=== PATIENT | male | born 1960 | race Caucasian/White ===

== ENCOUNTER 2018-06-26 00:38 | Outpatient (CLI) | payer MEDICAID, SELFPAY ==
--- NOTE | 2018-06-26 11:20 | DI.RAD_ITS ---
SYMPTOMS/DIAGNOSIS: BACK PAIN, DORSALGIA, M54.9 THORACIC SPINE: There is no evidence of compression fractures. There is a slight dextroscoliosis. The exam was not performed weight bearing. No vertebral body anomalies are seen. There are mild degenerative disc changes greatest in the mid thoracic region. The heart size appears normal. The aorta is mildly tortuous. IMPRESSION: Mild degenerative changes.
== END 2018-06-26 00:58 ==
PROVIDERS: PCP Nurse Practitioner; Visit Provider Nurse Practitioner
DX: M54.6 Pain in thoracic spine (principal); M47.814 Spondylosis without myelopathy or radiculopathy, thoracic region
CPT/HCPCS: 72072

== ENCOUNTER 2020-05-11 02:38 | Outpatient (CLI) | payer MEDICAID, SELFPAY ==
[2020-05-12 22:17] LABS: Patient Race White; SARS-CoV-2 RNA Undetected (Undetected); SARS-CoV-2 Specimen Source Nasal
== END 2020-05-11 02:58 ==
PROVIDERS: PCP Nurse Practitioner; Visit Provider Student in an Organized Health Care Education/Training Program
DX: Z11.59 Encounter for screening for other viral diseases (principal)
CPT/HCPCS: U0003

== ENCOUNTER 2021-08-04 01:50 | Outpatient (CLI) | payer MEDICAID, SELFPAY ==
[2021-08-04 07:45] LABS: HCT 40.1 % (40.0-50.0); HGB 13.1 g/dL (13.5-17.5); MCHC 32.7 % (32.0-36.0); MCV 94.8 fL (80-95); MPV 9.1 fL (8.0-11.0); Platelet Count 253 10^3/uL (130-400); RBC 4.23 10^6/uL (4.36-5.78); RDW 12.4 % (11.8-14.1); WBC 5.84 10^3/uL (4.4-10.8)
[2021-08-04 08:09] LABS: Hemoglobin A1C 5.6 % (<5.7)
[2021-08-04 09:06] LABS: ALT 32 U/L (16-63); AST 18 U/L (15-37); Albumin 3.6 g/dL (3.4-5.0); Alkaline Phosphatase 47 U/L (46-116); Anion Gap 9.5 mmol/L (3-11); BUN 20 mg/dL (7-18); Bilirubin, Total 0.5 mg/dL (0.2-1.0); CO2 27.5 mmol/L (21.0-32.0); CREATININE 1.2 mg/dL (0.70-1.30); Calcium 8.5 mg/dL (8.5-10.1); Calculated LDL 199 mg/dL (<100); Chloride 104 mmol/L (98-107); Cholesterol 270 mg/dL (<200); Glucose 93 mg/dL (74-106); HDL Cholesterol 52 mg/dL (40-60); Potassium 4.4 mmol/L (3.5-5.1); Sodium 141 mmol/L (136-145); TSH (W/Ref FT4) 5.32 uIU/mL (0.36-3.74); Total Protein 6.8 g/dL (6.4-8.2); Triglyceride 96 mg/dL (<150)
[2021-08-04 09:22] LABS: FREE T4 0.71 ng/dL (0.76-1.46)
== END 2021-08-04 01:51 | disposition home or self-care (01) ==
LOC: LBO 01:50
PROVIDERS: PCP Nurse Practitioner; Visit Provider Nurse Practitioner
DX: E03.9 Hypothyroidism, unspecified (principal); E11.9 Type 2 diabetes mellitus without complications; E78.5 Hyperlipidemia, unspecified; R73.01 Impaired fasting glucose; I10 Essential (primary) hypertension
CPT/HCPCS: 36415; 80053; 80061; 85027; 83036; 84439; 84443

== ENCOUNTER 2021-08-11 14:28 | Outpatient (REF) | payer MEDICAID, SELFPAY ==
[2021-08-12 18:50] LABS: PSA, Screening 2.3 ng/mL (0.0-4.5)
== END 2021-08-11 14:29 | disposition home or self-care (01) ==
LOC: LBN 14:28
PROVIDERS: PCP Nurse Practitioner; Visit Provider Nurse Practitioner
DX: Z80.42 Family history of malignant neoplasm of prostate (principal); Z12.5 Encounter for screening for malignant neoplasm of prostate
CPT/HCPCS: 84153

== ENCOUNTER 2023-01-09 02:43 | Outpatient (CLI) | payer MEDICAID, SELFPAY ==
[2023-01-09 09:22] LABS: ALT 37 U/L (16-63); AST 26 U/L (15-37); Albumin 3.8 g/dL (3.4-5.0); Alkaline Phosphatase 51 U/L (46-116); Anion Gap 6.6 mmol/L (3-11); BUN 20 mg/dL (7-18); Bilirubin, Total 0.5 mg/dL (0.2-1.0); CO2 28.4 mmol/L (21.0-32.0); CREATININE 1.2 mg/dL (0.70-1.30); Calcium 9.3 mg/dL (8.5-10.1); Calculated LDL 187 mg/dL (<100); Chloride 104 mmol/L (98-107); Cholesterol 249 mg/dL (<200); Estimated GFR 68.38 (mL/min/1.73m2); Glucose 93 mg/dL (74-106); HDL Cholesterol 49 mg/dL (40-60); Potassium 4.2 mmol/L (3.5-5.1); Sodium 139 mmol/L (136-145); TSH (W/Ref FT4) 4.85 uIU/mL (0.36-3.74); Total Protein 7.6 g/dL (6.4-8.2); Triglyceride 68 mg/dL (<150)
[2023-01-09 09:38] LABS: FREE T4 0.83 ng/dL (0.76-1.46)
[2023-01-10 09:53] LABS: PSA, Screening 3.1 ng/mL (<=4.5)
== END 2023-01-09 02:44 | disposition home or self-care (01) ==
LOC: LBO 02:43
PROVIDERS: PCP Nurse Practitioner; Referring Provider Nurse Practitioner; Visit Provider Nurse Practitioner
DX: E03.9 Hypothyroidism, unspecified (principal); E78.5 Hyperlipidemia, unspecified; Z12.5 Encounter for screening for malignant neoplasm of prostate; Z80.42 Family history of malignant neoplasm of prostate
CPT/HCPCS: 36415; 80053; 80061; 84153; 84439; 84443

== ENCOUNTER 2023-01-12 00:48 | Outpatient (CLI) | payer MEDICAID, SELFPAY ==
--- NOTE | 2023-01-12 07:00 | ETT_ITS ---
APPROVED REPORT Exam: Exercise Treadmill Patient Location: Out-Patient Room/Bed: Stress Nurse: Jane Alfaro RN Ordering Provider:SATHISH HELTON, Contact Number: [phone] BMI: 28.36 Baseline Rhythm: Sinus Rhythm Comment: 1st degree AV block Indications: Family History of heart disease, WATTERS Medical History Medical History: None Cardiac Medications: None Allergies: NKA Cardiac Risk Factors: Family hx, HLD Previous Cardiac Procedures: None Pretest Chest Pain Characteristics: None Exercise History: Physically active Physical Disabilities: None Lung Sounds: Clear to auscultation Heart Sounds: Regular Stress Test Details Test: Exercise stress testing was performed using a Ottoniel protocol. Rest Stress HR Resting HR Supine: 59 bpm Max Heart Rate (APMHR): 158 bpm Resting HR Standin bpm Target HR (85% APMHR): 134 bpm Max HR Achieved: 138 bpm % of APMHR: 87 Recovery HR: 74 bpm HR response to stress: Normal HR response to stress BP Resting BP Supine: 118/68 mmHg Resting BP Standin/82 mmHg Max BP: 190/82 mmHg Recovery BP: 132/82 mmHg BP response to stress: Normal blood pressure response to stress. ECG Resting ECst degree AV block, Sinus Rhythm Ectopy: Occasional PAC's Stress ECst degree AV block, Sinus Tachycardia ST Change: No significant ST segment changes noted Arrhythmia: None Recovery ECst degree AV block, Sinus Rhythm Recovery ST Change: No significant ST segment changes noted Recovery Arrhythmia: Occasional PAC's Clinical Reason for Termination: Target HR Achieved Stress Symptoms: None Exercise duration: 11 min55 sec Highest Stage Reached: Stage 4: 4.2 mph at 16% grade. Exercise capacity: 13.48 METs Angina Score: None Souza Treadmill Score: 11.5 Rate Pressure Product: [id number] Stress ECG Conclusion 1. Resting electrocardiogram showed first-degree AV block 2. Patient exercised on the Ottoniel protocol and completed a workload of 13.48 METS, above average exer cise tolerance, no symptoms 3. Normal heart rate and blood pressure response to exercise. Patient achieved 87% of predicted hear t rate for age 4. There was no electrocardiographic evidence of myocardial ischemia 5. There were no significant dysrhythmias Souza Treadmill Score is 11.5 which is Low risk. Stress Test Summary STAGE Time (mins) Speed (mph) Grade (%) HR BP SpO2 SYMPTOMS METS Supine 59 118/68 98 Standing 61 130/82 98 1 3 1.7 10 92 158/80 97 4.5 2 6 2.5 12 107 168/82 98 7 1 min recovery 115 190/82 97 3 min recovery 82 182/76 98 6 min recovery 74 156/82 98 9 min recovery 74 132/82 97
== END 2023-01-12 01:08 ==
LOC: DI 00:48
PROVIDERS: PCP Nurse Practitioner; Visit Provider Nurse Practitioner
DX: R06.09 Other forms of dyspnea (principal); Z82.49 Family history of ischemic heart disease and other diseases of the circulatory system
CPT/HCPCS: 93017

== ENCOUNTER 2024-03-13 08:03 | Outpatient (CLI) | payer MEDICAID, SELFPAY ==
[2024-03-13 07:24] LABS: HCT 39.3 % (40.0-50.0); HGB 12.7 g/dL (13.5-17.5); MCH 30.2 pg (27.0-33.0); MCHC 32.3 % (32.0-36.0); MCV 93 fL (80-95); MPV 9.4 fL (8.0-11.0); Platelet Count 230 10^3/uL (130-400); RBC 4.21 10^6/uL (4.36-5.78); RDW 12.2 % (11.8-14.1); RDW-SD 42.3 fL; WBC 5.56 10^3/uL (4.4-10.8)
[2024-03-13 08:56] LABS: ALT 30 U/L (16-63); AST 19 U/L (15-37); Albumin 3.4 g/dL (3.4-5.0); Alkaline Phosphatase 56 U/L (46-116); Anion Gap 7.2 mmol/L (3-11); BUN 20 mg/dL (7-18); Bilirubin, Total 0.52 mg/dL (0.2-1.0); CO2 28.8 mmol/L (21.0-32.0); CREATININE 1.2 mg/dL (0.70-1.30); Calculated LDL 166 mg/dL (<100); Chloride 102 mmol/L (98-107); Cholesterol 232 mg/dL (<200); Estimated GFR 67.95 (mL/min/1.73m2); Glucose 97 mg/dL (74-106); HDL Cholesterol 47 mg/dL (40-60); Potassium 4.1 mmol/L (3.5-5.1); Sodium 138 mmol/L (136-145); TSH (W/Ref FT4) 4.33 uIU/mL (0.36-3.74); Total Protein 6.9 g/dL (6.4-8.2); Triglyceride 97 mg/dL (<150)
[2024-03-13 09:21] LABS: FREE T4 0.85 ng/dL (0.76-1.46)
== END 2024-03-13 08:04 | disposition home or self-care (01) ==
LOC: LBO 08:03
PROVIDERS: PCP Nurse Practitioner; Visit Provider Nurse Practitioner
DX: E78.5 Hyperlipidemia, unspecified (principal); E03.9 Hypothyroidism, unspecified; R79.9 Abnormal finding of blood chemistry, unspecified
CPT/HCPCS: 36415; 80053; 80061; 85027; 84439; 84443

== ENCOUNTER 2024-12-18 07:35 | Outpatient (CLI) | payer MEDICAID, SELFPAY ==
[2024-12-18 08:19] LABS: TSH (W/Ref FT4) 2.83 uIU/mL (0.36-3.74)
[2024-12-18 18:06] LABS: PSA, Screening 4.3 ng/mL (<=4.5)
[2024-12-28 16:47] LABS: Testosterone, Free 9.48 ng/dL (3.67-13.9)
== END 2024-12-18 07:36 | disposition home or self-care (01) ==
LOC: LBO 07:35
PROVIDERS: PCP Family Medicine; Visit Provider Nurse Practitioner
DX: R39.198 Other difficulties with micturition (principal); R63.5 Abnormal weight gain; R68.82 Decreased libido; R53.83 Other fatigue
CPT/HCPCS: 36415; 84153; 84402; 84403; 84443